=== PATIENT | female | born 1975 | race Caucasian/White ===

== ENCOUNTER 2016-06-19 16:18 | Outpatient (CLI) | payer OTHER ==
--- NOTE | 2016-06-19 17:20 | DIAGNOSTIC IMAGING REPORT ---
PROCEDURE: XR CHEST 2 VIEW INDICATION: COUGH/WHEEZING TECHNIQUE: PA and lateral view. COMPARISON: Chest x-ray 02/01/2015 FINDINGS: Lungs are clear. Cardiovascular structures are normal. Bony thorax is unremarkable. IMPRESSION: 1. Negative chest.
== END 2016-06-19 23:00 ==
LOC: XR SRH 16:18
DX: R06.2 Wheezing (principal); R05 Cough

== ENCOUNTER 2016-08-13 16:45 | Emergency (ER) | payer OTHER ==
--- NOTE | 2016-08-13 18:00 | DIAGNOSTIC IMAGING REPORT ---
PROCEDURE: XR CHEST 2 VIEW INDICATION: Chest pain. TECHNIQUE: PA and lateral views. COMPARISON: Compared to chest x-ray on 06/19/2016. FINDINGS: There is minimal thickening of the pulmonary fissures with findings suggesting mild interstitial changes (Eduardo B lines). Lungs are otherwise clear Heart and mediastinum are normal. Thorax is normal. IMPRESSION: 1. Minimal thickening of the pulmonary fissures with borderline interstitial changes. While heart is of normal size, consider acute/early pulmonary edema. 2. Findings discussed with Dr. Bruno Dial.
--- NOTE | 2016-08-13 20:33 | ED CLINICAL REPORT ---
Clinical Report - Physicians/Mid Levels [facility] [address] [place] [address] 08/13/2016 16:47 Patient: TWIN BLAKE Time Seen: 17:18. Arrived- By ambulance. Historian- patient and EMS personnel. CPT: ER phys charges level 4 plus (#[id number]). EKG interpretation (#[id number]). HISTORY OF PRESENT ILLNESS Chief Complaint: DYSPNEA. This started just prior to arrival Was in dental office getting teeth cleaned when she had the onset of dyspnea and claustraphobia; this had cough and intermittent dyspnea for 2 months and since she was diagnosed with bronchitis. She has used a albuterol inhaler since that time. She was at the dentist's office today when they were cleaning her teeth and she developed a sense of panic dyspnea and and claustrophobia. She was evaluated by the medics and brought in for dyspnea. Patient has no history of any similar kinds of events. She notes she does have a little left-sided chest pressure. and is still present. The dyspnea is described as moderate. The patient has had a cough, chest discomfort, dyspnea on exertion and anxiety. She has had moderate amounts of clear sputum (for 2 months). No fever, sweating episodes, chills, calf pain or foot swelling. Similar symptoms previously: Milder. Recent medical care: Not recently seen/assessed. REVIEW OF SYSTEMS The patient has not had weight loss. No sore throat, nasal discharge, sinus drainage, nausea or vomiting. No abdominal pain, diarrhea, black stools, bloody stools or fainting episodes. No difficulty with urination, excessive urination, skin rash, enlarged lymph nodes or joint pain. Chronic low back pain causing high blood pressure. All systems otherwise negative, except as recorded above. PAST HISTORY Hypertension. Chronic low back pain. . No history of asthma, pneumonia, congestive heart failure, emphysema or deep venous thrombosis. No history of pulmonary embolism. Medications: Albuterol Sulfate Inhalation. Albuterol. Allergies: No Known Drug Allergy. SOCIAL HISTORY Never smoker. No alcohol use or drug use. ADDITIONAL NOTES The nursing notes have been reviewed. PHYSICAL EXAM Vital Signs: 08/13/2016 17:03 BP: 152/138. HR: 118. RR: 22. O2 saturation: 91%. Temp: 38.6 F. Appearance: Alert. Anxious. Patient in moderate distress. Eyes: Eyes normal inspection. ENT: Pharynx normal. Uvula midline. Neck: Normal inspection. CVS: Normal heart rate and rhythm. Heart sounds normal. Pulses normal. Respiratory: Mild respiratory distress with anxiety and tachypnea. Mild rales present diffusely in both lungs. Abdomen: Soft and nontender. Back: Normal inspection. No CVA tenderness. Skin: Skin warm. Normal skin color. No rash. Extremities: Extremities exhibit normal ROM. No calf tenderness. No lower extremity edema. Neuro: Oriented X 3. No motor deficit. No sensory deficit. LABS, X-RAYS, AND EKG EKG: Normal sinus rhythm. Normal P waves. LBBB. Non-specific ST segment / T wave abnormalities. Prior EKG unavailable. The study has been interpreted contemporaneously. The study has been independently viewed by me. The EKG appears to be a good tracing. Chest X-ray: (possible early CHF by raissa B lines at the bases and fluid in the fissures.). Views: PA and lateral. Technique: good. The X-rays were independently viewed by me. Laboratory Tests: ESR: (SOCRATES: 08/13/2016 18:00) ( [facility] 08/13/2016 18:35) Final results Test Result Flag Units (Reference) SED RATE WESTERGREN 5 mm/hr (0-20) CBC w Diff: (SOCRATES: 08/13/2016 18:00) ( MsgRcvd 08/13/2016 18:15) Final results Test Result Flag Units (Reference) WHITE BLOOD COUNT 8.3 K/uL (4.5-11.5) RED BLOOD COUNT 5.12 M/uL (4.00-5.20) HEMOGLOBIN 14.0 gm/dL (12.0-16.0) HEMATOCRIT 41.7 % (36.0-46.0) MEAN CELL VOLUME 81 fL (80-100) MEAN CORPUSCULAR HGB 27 pg (26-34) MEAN CORPUSCULAR HGB CONC 34 g/dL (31-37) RED CELL DISTRIBUTION WIDTH 14.1 % (11.6-14.8) PLATELET COUNT 149 L K/uL (150-400) NEUTROPHIL % 75.3 H % (50-75) LYMPH % 19.3 L % (25-40) MONO % 4.0 % (3-14) EOSINOPHIL % 1.3 % (0-4) BASOPHIL % 0.1 % (0-2) [id number]: (SOCRATES: 08/13/2016 18:00) ( [facility] 08/13/2016 18:27) Final results Test Result Flag Units (Reference) D-DIMER QUANTITATIVE 0.42 ug/mLFEU (0.27-0.52) The primary value of this quantitative assay relates toits negative predictive value (i.e. exclusion) of pulmonaryembolism/deep vein thrombosis/DIC.Elevated levels of d-dimer may also occur with:, age, cancer, inflammation, liver disease,post-op, infection, hematoma, coronary disease, peripheralarteriopathy, bleeding disorders and thrombolytic treatment.Results should be correlated with other clinical andradiological data.Testing Methodology: Latex Immunoassay [id number]: (SOCRATES: 08/13/2016 18:00) ( [facility] 08/13/2016 18:34) Final results Test Result Flag Units (Reference) C-REACTIVE PROTEIN 0.2 mg/dL (0.0-0.9) BNP: (SOCRATES: 08/13/2016 18:00) ( [facility] 08/13/2016 18:35) Final results Test Result Flag Units (Reference) B-TYPE NATRIURETIC PEPTIDE 89.3 pg/ml (5-100) CHEM 13 PANEL: (SOCRATES: 08/13/2016 18:00) ( [facility] 08/13/2016 18:33) Final results Test Result Flag Units (Reference) GLUCOSE 131 H mg/dL (70-110) BUN 14 mg/dL (7-18) CREATININE 0.8 mg/dL (0.6-1.3) Estimated GFR >60 mL/min Estimated GFR- >60 mL/min Note: Persistent reduction over 3 months in eGFR<60 mL/min/1.73 m2 defines CKD. Patients with eGFR values>=60 mL/min/1.73 m2 may also have CKD if evidence ofpersistent proteinuria. Additional information may be foundat www.kidney.org. SODIUM 143 mmol/L (136-145) POTASSIUM 3.1 L mmol/L (3.5-5.1) CHLORIDE 106 mmol/L (98-107) CARBON DIOXIDE 26 mmol/L (21-32) CALCIUM 9.4 mg/dL (8.5-10.1) TOTAL PROTEIN 7.5 g/dL (6.4-8.2) ALBUMIN 4.0 g/dL (3.3-5.0) BILIRUBIN, TOTAL 0.4 mg/dL (0.0-1.0) ALKALINE PHOSPHATASE 67 U/L (46-116) AST (SGOT) 18 U/L (15-37) ALT (SGPT) 35 U/L (12-78) CPK 69 U/L (24-260) MAGNESIUM 2.0 mg/dL (1.8-2.4) TROPONIN I <0.05 ng/mL (0.00-1.5) TROPONIN REFERENCE RANGE:<0.1 NEGATIVE0.1-1.5 INDETERMINANT>1.5 POSITIVE . PROGRESS AND PROCEDURES Course of Care: Bishop LINDSEYN : Some better Hep lock Ativan 0.5 mg IV seemed to help a lot 20:24 08/13/16. Lungs much improved now. Ativan helped to resolve anxiety. Pt has had untreated HTN for 4 years that is due to chronic pain in the low back. Patient/family counseled. Disposition: Discharged. Condition: stable and improved. CLINICAL IMPRESSION Acute dyspnea Anxiety reaction with hyperventilation. Uncontrolled essential hypertension. New LBBB on EKG. Transient chest pain Chronic cough of unclear etiology. INSTRUCTIONS No strenuous activity. Avoid tobacco smoke. Warnings: Further evaluation is necessary. SEDATIVE MEDICATION: You were given sedative medication during your visit. Do not drive or operate dangerous machinery. GENERAL WARNINGS: Return or contact your physician immediately if your condition worsens or changes unexpectedly, if not improving as expected, or if other problems arise. Your Current Medications: CONTINUE TAKING THE FOLLOWING MEDICATIONS: Albuterol*. Albuterol Sulfate Inhalation. Prescription Medications: Alprazolam 0.5 mg: take 1 orally every 6 hours as needed for anxiety. Dispense ten (10). No refill. Pulmicort Flexhaler 180 mcg: inhale 2 puffs every 12 hours. Rinse mouth after inhalation. Dispense one (1) unit. No refills. Substitution is permissible. Follow-up: Follow up with your doctor. Call for the next available appointment. Follow up with a beta tester and epic anesthesia analyst- as recommended by your primary care physician. Call for the next available appointment. Understanding of the discharge instructions verbalized by patient. (Electronically signed by Bruno Dila MD 08/13/2016 22:03)
--- NOTE | 2016-08-13 20:33 | ED CLINICAL REPORT ---
Clinical Report - Physicians/Mid Levels [facility] [address] [place] [address] 08/13/2016 16:47 Patient: TWIN BLAKE Time Seen: 17:18. Arrived- By ambulance. Historian- patient and EMS personnel. CPT: ER phys charges level 4 plus (#[id number]). EKG interpretation (#[id number]). HISTORY OF PRESENT ILLNESS Chief Complaint: DYSPNEA. This started just prior to arrival Was in dental office getting teeth cleaned when she had the onset of dyspnea and claustraphobia; this had cough and intermittent dyspnea for 2 months and since she was diagnosed with bronchitis. She has used a albuterol inhaler since that time. She was at the dentist's office today when they were cleaning her teeth and she developed a sense of panic dyspnea and and claustrophobia. She was evaluated by the medics and brought in for dyspnea. Patient has no history of any similar kinds of events. She notes she does have a little left-sided chest pressure. and is still present. The dyspnea is described as moderate. The patient has had a cough, chest discomfort, dyspnea on exertion and anxiety. She has had moderate amounts of clear sputum (for 2 months). No fever, sweating episodes, chills, calf pain or foot swelling. Similar symptoms previously: Milder. Recent medical care: Not recently seen/assessed. REVIEW OF SYSTEMS The patient has not had weight loss. No sore throat, nasal discharge, sinus drainage, nausea or vomiting. No abdominal pain, diarrhea, black stools, bloody stools or fainting episodes. No difficulty with urination, excessive urination, skin rash, enlarged lymph nodes or joint pain. Chronic low back pain causing high blood pressure. All systems otherwise negative, except as recorded above. PAST HISTORY Hypertension. Chronic low back pain. . No history of asthma, pneumonia, congestive heart failure, emphysema or deep venous thrombosis. No history of pulmonary embolism. Medications: Albuterol Sulfate Inhalation. Albuterol. Allergies: No Known Drug Allergy. SOCIAL HISTORY Never smoker. No alcohol use or drug use. ADDITIONAL NOTES The nursing notes have been reviewed. PHYSICAL EXAM Vital Signs: 08/13/2016 17:03 BP: 152/138. HR: 118. RR: 22. O2 saturation: 91%. Temp: 38.6 F. Appearance: Alert. Anxious. Patient in moderate distress. Eyes: Eyes normal inspection. ENT: Pharynx normal. Uvula midline. Neck: Normal inspection. CVS: Normal heart rate and rhythm. Heart sounds normal. Pulses normal. Respiratory: Mild respiratory distress with anxiety and tachypnea. Mild rales present diffusely in both lungs. Abdomen: Soft and nontender. Back: Normal inspection. No CVA tenderness. Skin: Skin warm. Normal skin color. No rash. Extremities: Extremities exhibit normal ROM. No calf tenderness. No lower extremity edema. Neuro: Oriented X 3. No motor deficit. No sensory deficit. LABS, X-RAYS, AND EKG EKG: Normal sinus rhythm. Normal P waves. LBBB. Non-specific ST segment / T wave abnormalities. Prior EKG unavailable. The study has been interpreted contemporaneously. The study has been independently viewed by me. The EKG appears to be a good tracing. Chest X-ray: (possible early CHF by raissa B lines at the bases and fluid in the fissures.). Views: PA and lateral. Technique: good. The X-rays were independently viewed by me. Laboratory Tests: ESR: (SOCRATES: 08/13/2016 18:00) ( [facility] 08/13/2016 18:35) Final results Test Result Flag Units (Reference) SED RATE WESTERGREN 5 mm/hr (0-20) CBC w Diff: (SOCRATES: 08/13/2016 18:00) ( MsgRcvd 08/13/2016 18:15) Final results Test Result Flag Units (Reference) WHITE BLOOD COUNT 8.3 K/uL (4.5-11.5) RED BLOOD COUNT 5.12 M/uL (4.00-5.20) HEMOGLOBIN 14.0 gm/dL (12.0-16.0) HEMATOCRIT 41.7 % (36.0-46.0) MEAN CELL VOLUME 81 fL (80-100) MEAN CORPUSCULAR HGB 27 pg (26-34) MEAN CORPUSCULAR HGB CONC 34 g/dL (31-37) RED CELL DISTRIBUTION WIDTH 14.1 % (11.6-14.8) PLATELET COUNT 149 L K/uL (150-400) NEUTROPHIL % 75.3 H % (50-75) LYMPH % 19.3 L % (25-40) MONO % 4.0 % (3-14) EOSINOPHIL % 1.3 % (0-4) BASOPHIL % 0.1 % (0-2) [id number]: (SOCRATES: 08/13/2016 18:00) ( [facility] 08/13/2016 18:27) Final results Test Result Flag Units (Reference) D-DIMER QUANTITATIVE 0.42 ug/mLFEU (0.27-0.52) The primary value of this quantitative assay relates toits negative predictive value (i.e. exclusion) of pulmonaryembolism/deep vein thrombosis/DIC.Elevated levels of d-dimer may also occur with:, age, cancer, inflammation, liver disease,post-op, infection, hematoma, coronary disease, peripheralarteriopathy, bleeding disorders and thrombolytic treatment.Results should be correlated with other clinical andradiological data.Testing Methodology: Latex Immunoassay [id number]: (SOCRATES: 08/13/2016 18:00) ( [facility] 08/13/2016 18:34) Final results Test Result Flag Units (Reference) C-REACTIVE PROTEIN 0.2 mg/dL (0.0-0.9) BNP: (SOCRATES: 08/13/2016 18:00) ( [facility] 08/13/2016 18:35) Final results Test Result Flag Units (Reference) B-TYPE NATRIURETIC PEPTIDE 89.3 pg/ml (5-100) CHEM 13 PANEL: (SOCRATES: 08/13/2016 18:00) ( [facility] 08/13/2016 18:33) Final results Test Result Flag Units (Reference) GLUCOSE 131 H mg/dL (70-110) BUN 14 mg/dL (7-18) CREATININE 0.8 mg/dL (0.6-1.3) Estimated GFR >60 mL/min Estimated GFR- >60 mL/min Note: Persistent reduction over 3 months in eGFR<60 mL/min/1.73 m2 defines CKD. Patients with eGFR values>=60 mL/min/1.73 m2 may also have CKD if evidence ofpersistent proteinuria. Additional information may be foundat www.kidney.org. SODIUM 143 mmol/L (136-145) POTASSIUM 3.1 L mmol/L (3.5-5.1) CHLORIDE 106 mmol/L (98-107) CARBON DIOXIDE 26 mmol/L (21-32) CALCIUM 9.4 mg/dL (8.5-10.1) TOTAL PROTEIN 7.5 g/dL (6.4-8.2) ALBUMIN 4.0 g/dL (3.3-5.0) BILIRUBIN, TOTAL 0.4 mg/dL (0.0-1.0) ALKALINE PHOSPHATASE 67 U/L (46-116) AST (SGOT) 18 U/L (15-37) ALT (SGPT) 35 U/L (12-78) CPK 69 U/L (24-260) MAGNESIUM 2.0 mg/dL (1.8-2.4) TROPONIN I <0.05 ng/mL (0.00-1.5) TROPONIN REFERENCE RANGE:<0.1 NEGATIVE0.1-1.5 INDETERMINANT>1.5 POSITIVE . PROGRESS AND PROCEDURES Course of Care: Bishop LINDSEYN : Some better Hep lock Ativan 0.5 mg IV seemed to help a lot 20:24 08/13/16. Lungs much improved now. Ativan helped to resolve anxiety. Pt has had untreated HTN for 4 years that is due to chronic pain in the low back. Patient/family counseled. Disposition: Discharged. Condition: stable and improved. CLINICAL IMPRESSION Acute dyspnea Anxiety reaction with hyperventilation. Uncontrolled essential hypertension. New LBBB on EKG. Transient chest pain Chronic cough of unclear etiology. INSTRUCTIONS No strenuous activity. Avoid tobacco smoke. Warnings: Further evaluation is necessary. SEDATIVE MEDICATION: You were given sedative medication during your visit. Do not drive or operate dangerous machinery. GENERAL WARNINGS: Return or contact your physician immediately if your condition worsens or changes unexpectedly, if not improving as expected, or if other problems arise. Your Current Medications: CONTINUE TAKING THE FOLLOWING MEDICATIONS: Albuterol*. Albuterol Sulfate Inhalation. Prescription Medications: Alprazolam 0.5 mg: take 1 orally every 6 hours as needed for anxiety. Dispense ten (10). No refill. Pulmicort Flexhaler 180 mcg: inhale 2 puffs every 12 hours. Rinse mouth after inhalation. Dispense one (1) unit. No refills. Substitution is permissible. Follow-up: Follow up with your doctor. Call for the next available appointment. Follow up with a neon glass blower and hemmer chainstitch- as recommended by your primary care physician. Call for the next available appointment. Understanding of the discharge instructions verbalized by patient. (Electronically signed by Bruno Dial MD 08/13/2016 22:03)
--- NOTE | 2016-08-13 20:34 | ED ORDER SUMMARY ---
..... Patient: TWIN BLAKE OrderSheet [facility] VisitID: [id number] [place] [address] 41y, F Registration Date/Time: 08/13/2016 ORDER SHEET Weight: 136.0 kg (stated) Allergies: No Known Drug Allergy GENERAL ORDERS: Chest 2V Urgent (17:08/13/2016 Colleen HAZEL) (Ack 17:31 Eric ER Tech1) (18:10 LAbe R.N.) Infection Prevention Coordinator (Continuous) (17:08/13/2016 Colleen HAZEL) (17:32 LAbe R.N.) Cardiac Panel Stat (:08/13/2016 Colleen HAZEL) (Ack 17:31 Eric Valverde1) (18:10 LAbe R.N.) BNP Urgent (17:08/13/2016 Colleen HAZEL) (Ack 17:31 Eric Valverde1) (18:10 LAbe R.N.) D-Dimer Urgent (17:08/13/2016 Colleen HAZEL) (Ack 17:31 Eric Valverde1) (18:10 LAbe R.N.) Oxygen (2 L/min) (NC) (17:08/13/2016 Colleen HAZEL) (17:32 LAbe R.N.) Pulse oximeter (17:08/13/2016 Colleen HAZEL) (17:32 LAbe R.N.) EKG - ER Stat (17:08/13/2016 Colleen HAZEL) (Ack 17:31 Eric Goff) (17:49 PWeiroseanne ER Tech1) CRP Urgent (17:08/13/2016 Colleen HAZEL) (Ack 17:31 Eric Goff) (18:10 LAbe R.N.) ESR Urgent (:08/13/2016 Colleen HAZEL) (Ack 17:31 Eric Valverde1) (18:10 LAbe R.N.) MEDICATION ORDERS: DuoNeb Neb Tx 1 unit dose (NOW) (17:08/13/2016 Colleen HAZEL) (Ack 17:32 Veda R.N.) (17:38 KEpting) IV FLUIDS: IV Saline Lock (17:30 08/13/2016 Colleen HAZEL) (Ack 17:32 LAbe R.N.) (18:11 LAbe R.N.) Ativan IV 0.5 mg (NOW) (18:22 08/13/2016 Colleen HAZEL) (18:53 LWannie R.N.) ORDER SHEET NOTES: [Electronically signed by Jazzy Bloom R.N. (20:59 08/13/2016)] [Electronically signed by Bruno Dial MD (22:03 08/13/2016)] [Electronically locked/signed by Jazzy Bloom R.N. (20:59 08/13/2016)]
--- NOTE | 2016-08-13 20:34 | ED ORDER SUMMARY ---
..... Patient: TWIN BLAKE OrderSheet [facility] VisitID: [id number] [place] [address] 41y, F Registration Date/Time: 08/13/2016 ORDER SHEET Weight: 136.0 kg (stated) Allergies: No Known Drug Allergy GENERAL ORDERS: Chest 2V Urgent (17:08/13/2016 Colleen HAZEL) (Ack 17:31 Eric ER Tech1) (18:10 LAbe R.N.) Community Pharmacist (Continuous) (17:08/13/2016 Colleen HAZEL) (17:32 LAbe R.N.) Cardiac Panel Stat (:08/13/2016 Colleen HAZEL) (Ack 17:31 Eric Valverde1) (18:10 LAbe R.N.) BNP Urgent (17:08/13/2016 Colleen HAZEL) (Ack 17:31 Eric Valverde1) (18:10 LAbe R.N.) D-Dimer Urgent (17:08/13/2016 Colleen HAZEL) (Ack 17:31 Eric Valverde1) (18:10 LAbe R.N.) Oxygen (2 L/min) (NC) (17:08/13/2016 Colleen HAZEL) (17:32 LAbe R.N.) Pulse oximeter (17:08/13/2016 Colleen HAZEL) (17:32 LAbe R.N.) EKG - ER Stat (17:08/13/2016 Colleen HAZEL) (Ack 17:31 Eric Goff) (17:49 PWeiroseanne ER Tech1) CRP Urgent (17:08/13/2016 Colleen HAZEL) (Ack 17:31 Eric Goff) (18:10 LAbe R.N.) ESR Urgent (:08/13/2016 Colleen HAZEL) (Ack 17:31 Eric Valverde1) (18:10 LAbe R.N.) MEDICATION ORDERS: DuoNeb Neb Tx 1 unit dose (NOW) (17:08/13/2016 Colleen HAZEL) (Ack 17:32 Veda R.N.) (17:38 KEpting) IV FLUIDS: IV Saline Lock (17:30 08/13/2016 Colleen HAZEL) (Ack 17:32 LAbe R.N.) (18:11 LAbe R.N.) Ativan IV 0.5 mg (NOW) (18:22 08/13/2016 Colleen HAZEL) (18:53 LWannie R.N.) ORDER SHEET NOTES: [Electronically signed by Jazzy Bloom R.N. (20:59 08/13/2016)] [Electronically signed by Bruno Dial MD (22:03 08/13/2016)] [Electronically locked/signed by Jazzy Bloom R.N. (20:59 08/13/2016)]
--- NOTE | 2016-08-13 20:34 | ED NURSING NOTES ---
Clinical Report - Nurses [facility] [address] [place] [address] 08/13/2016 16:47 Patient: TWIN BLAKE TRIAGE Triage time 1655. Acuity: LEVEL 2. Chief Complaint: SHORTNESS OF BREATH, DIFFICULTY BREATHING, "ASTHMA ATTACK" and WHEEZING. Alert. No acute distress. --17:13 Trini Rankin R.N. 17:03 08/13/16. BP: 152/138. HR: 118. RR: 22. O2 saturation: 91%. Temp: 38.6 F. Pain level now 0/10. --17:13 Trini Rankin R.N. Weight: 136 kg stated. Height/Length: 70 inches Per Patient. BMI: 43. --17:12 Trini Rankin R.N. Medications Albuterol. --17:07 Trini Rankin R.N. Albuterol Sulfate Inhalation. --17:07 Trini Rankin R.N. Allergies No Known Drug Allergy. --17:07 Trini Rankin R.N. History Arrived by private vehicle. Historian: patient. Accompanied by family and daughter and son. Primary physician (cinthia). This started just prior to arrival. ( patient at dentist having teeth cleaned, got very nervous, became SOB, no meds given or numbing agents used, patient left to come to ED). She has had a cough and wheezing. No chest pain. 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 PAST MEDICAL HX: Immunizations: up-to-date. Last normal menstrual period was 3 weeks ago. ( patient states she has not been diagnosed with ashtma). SURGERY HX: . SOCIAL HX: Never smoker. No alcohol use or drug use. No infectious disease exposure. ABUSE ASSESSMENT: No report of abuse. SELF HARM ASSESSMENT: A self harm assessment was performed. The patient answered "no" to the question "Do you have thoughts of harming or killing yourself?" and "Are you here because you tried to hurt yourself?". FALL RISK ASSESSMENT: Fall risk assessment completed. No fall risk identified. NUTRITIONAL RISK ASSESSMENT: The nutritional risk assessment revealed no deficiencies. FUNCTIONAL ASSESSMENT: Functional assessment: no impairments noted. LEARNING NEEDS ASSESSMENT: The learning needs assessment revealed no barriers. --17:13 Triin Rankin R.N. Interventions ID and allergy band on patient. To treatment room. --17:13 Trini Rankin R.N. PHYSICAL ASSESSMENT To room via wheelchair. GENERAL / NEURO / PSYCH: Alert. Oriented X 4. Appears in distress. RESPIRATORY: Moderate respiratory distress. The patient can speak a few words at a time. Decreased breath sounds. Wheezing present. Rhonchi present. SKIN: Skin is warm and dry. --17:14 Trini Rankin R.N. NURSING PROGRESS NOTES Oxygen administered at 2 liters. Monitoring of patient in place. Patient gowned. Head of bed elevated. Two patient identifiers checked. Call light placed in reach. Bed placed in lowest position. Brakes of bed on. Patient ready for evaluation- chart flagged and ED physician notified. --17:15 Trini Rankin R.N. Reassessment after procedure, intervention and medication administered (duoneb). RESPIRATORY: Mild respiratory distress. The patient can speak in full sentences. Crackles present. --17:24 Trini Rankin R.N. 17:13 08/13/2016 Duoneb (Ipratropium-Albuterol) Neb [place] 1 unit dose given. --17:38 Elizabeth Wagner EKG time: (209). EKG was ordered, performed by a miryam and shown to the ED physician. --18:04 Ramón Melendez ER Tech1 18:11 08/13/2016 Site #1 started via IV in the right forearm with an 22g angiocath, with aseptic technique and good blood return; one attempt. Blood drawn: rainbow set. Saline lock flushed with 5 mL saline. --18:11 Trini Rankin R.N. 18:52 08/13/2016 Ativan (LORazepam) IVP 0.5 mg given over 2 minute(s) via site #1. Allergies verified, confirmed 5 rights and sedative warning given to the patient. IV patency established. IV site checked: no pain, redness, or swelling. IV flushed thoroughly pre- and post-medication administration. --18:53 Leonardo Molina R.N. Care transferred and report received. --19:22 Griselda Valle R.N. The patient reports no complaints and she is calm. RESPIRATORY: No respiratory distress. ( pt states she is comfortable and would like to go home.). --19:26 Griselda Valle R.N. DISPOSITION / DISCHARGE 20:51 08/13/2016 Site #1 removed upon discharge. Catheter intact. Manual pressure and bandage applied. --20:55 Jazzy Bloom R.N. Departure time: 2050. Condition at departure: improved and stable. ( Pt states BP is always elevated, BP is down from admission and pt is asymptomatic). No learning barriers present. Discharge instructions provided and reviewed with the patient. Reviewed medication(s) side effects, precautions, dosing and course information. Prescription(s) given to the patient. Activity restrictions reviewed (no strenuous). Patient verbalized understanding. Written instructions provided in [place]. ( pt going to followup with PCP). The patient was discharged home and accompanied by spouse. She left the Emergency Department ambulatory and via private vehicle. Spouse driving. --20:59 Jazzy Bloom R.N. 20:54 08/13/16. BP: 179/107 taken on the left arm, while lying. HR: 95 (regular and normal rate). RR: 18. O2 saturation: 95%. Temp: deferred. Pain level now: 0/10. --20:59 Jazzy Bloom R.N. Locked/Released at 08/13/2016 20:59 by Jazzy Bloom R.N.
--- NOTE | 2016-08-13 20:34 | ED NURSING NOTES ---
Clinical Report - Nurses [facility] [address] [place] [address] 08/13/2016 16:47 Patient: TWIN BLAKE TRIAGE Triage time 1655. Acuity: LEVEL 2. Chief Complaint: SHORTNESS OF BREATH, DIFFICULTY BREATHING, "ASTHMA ATTACK" and WHEEZING. Alert. No acute distress. --17:13 Trini Rankin R.N. 17:03 08/13/16. BP: 152/138. HR: 118. RR: 22. O2 saturation: 91%. Temp: 38.6 F. Pain level now 0/10. --17:13 Trini Rankin R.N. Weight: 136 kg stated. Height/Length: 70 inches Per Patient. BMI: 43. --17:12 Trini Rankin R.N. Medications Albuterol. --17:07 Trini Rankin R.N. Albuterol Sulfate Inhalation. --17:07 Trini Rankin R.N. Allergies No Known Drug Allergy. --17:07 Trini Rankin R.N. History Arrived by private vehicle. Historian: patient. Accompanied by family and daughter and son. Primary physician (cinthia). This started just prior to arrival. ( patient at dentist having teeth cleaned, got very nervous, became SOB, no meds given or numbing agents used, patient left to come to ED). She has had a cough and wheezing. No chest pain. 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 PAST MEDICAL HX: Immunizations: up-to-date. Last normal menstrual period was 3 weeks ago. ( patient states she has not been diagnosed with ashtma). SURGERY HX: . SOCIAL HX: Never smoker. No alcohol use or drug use. No infectious disease exposure. ABUSE ASSESSMENT: No report of abuse. SELF HARM ASSESSMENT: A self harm assessment was performed. The patient answered "no" to the question "Do you have thoughts of harming or killing yourself?" and "Are you here because you tried to hurt yourself?". FALL RISK ASSESSMENT: Fall risk assessment completed. No fall risk identified. NUTRITIONAL RISK ASSESSMENT: The nutritional risk assessment revealed no deficiencies. FUNCTIONAL ASSESSMENT: Functional assessment: no impairments noted. LEARNING NEEDS ASSESSMENT: The learning needs assessment revealed no barriers. --17:13 Trini Rankin R.N. Interventions ID and allergy band on patient. To treatment room. --17:13 Trini Rankin R.N. PHYSICAL ASSESSMENT To room via wheelchair. GENERAL / NEURO / PSYCH: Alert. Oriented X 4. Appears in distress. RESPIRATORY: Moderate respiratory distress. The patient can speak a few words at a time. Decreased breath sounds. Wheezing present. Rhonchi present. SKIN: Skin is warm and dry. --17:14 Trini Rankin R.N. NURSING PROGRESS NOTES Oxygen administered at 2 liters. Monitoring of patient in place. Patient gowned. Head of bed elevated. Two patient identifiers checked. Call light placed in reach. Bed placed in lowest position. Brakes of bed on. Patient ready for evaluation- chart flagged and ED physician notified. --17:15 Trini Rankin R.N. Reassessment after procedure, intervention and medication administered (duoneb). RESPIRATORY: Mild respiratory distress. The patient can speak in full sentences. Crackles present. --17:24 Trini Rankin R.N. 17:13 08/13/2016 Duoneb (Ipratropium-Albuterol) Neb [place] 1 unit dose given. --17:38 Elizabeth Wagner EKG time: (635). EKG was ordered, performed by a miryam and shown to the ED physician. --18:04 Ramón Melendez ER Tech1 18:11 08/13/2016 Site #1 started via IV in the right forearm with an 22g angiocath, with aseptic technique and good blood return; one attempt. Blood drawn: rainbow set. Saline lock flushed with 5 mL saline. --18:11 Trini Rankin R.N. 18:52 08/13/2016 Ativan (LORazepam) IVP 0.5 mg given over 2 minute(s) via site #1. Allergies verified, confirmed 5 rights and sedative warning given to the patient. IV patency established. IV site checked: no pain, redness, or swelling. IV flushed thoroughly pre- and post-medication administration. --18:53 Lenoardo Molina R.N. Care transferred and report received. --19:22 Griselda Valle R.N. The patient reports no complaints and she is calm. RESPIRATORY: No respiratory distress. ( pt states she is comfortable and would like to go home.). --19:26 Griselda Valle R.N. DISPOSITION / DISCHARGE 20:51 08/13/2016 Site #1 removed upon discharge. Catheter intact. Manual pressure and bandage applied. --20:55 Jazzy Bloom R.N. Departure time: 2050. Condition at departure: improved and stable. ( Pt states BP is always elevated, BP is down from admission and pt is asymptomatic). No learning barriers present. Discharge instructions provided and reviewed with the patient. Reviewed medication(s) side effects, precautions, dosing and course information. Prescription(s) given to the patient. Activity restrictions reviewed (no strenuous). Patient verbalized understanding. Written instructions provided in [place]. ( pt going to followup with PCP). The patient was discharged home and accompanied by spouse. She left the Emergency Department ambulatory and via private vehicle. Spouse driving. --20:59 Jazzy Bloom R.N. 20:54 08/13/16. BP: 179/107 taken on the left arm, while lying. HR: 95 (regular and normal rate). RR: 18. O2 saturation: 95%. Temp: deferred. Pain level now: 0/10. --20:59 Jazzy Bloom R.N. Locked/Released at 08/13/2016 20:59 by Jazzy Bloom R.N.
--- NOTE | 2016-08-13 22:04 | ED MAR SUMMARY ---
..... Medication Administration Record [facility] [address] [place] [address] Patient: TWIN BLAKE Visit ID: [id number] 41y, F Weight: 136.0 kg Height/Length: 70 in BMI: 43 ALLERGIES: No Known Drug Allergy Given 17:13 08/13/2016 Elizabeth Wagner, Medication Administered: DUONEB [NEB TX] (IPRATROPIUM-ALBUTEROL), Dose: 1 unit dose Neb TX. Medication Ordered: DuoNeb Neb Tx 1 unit dose (NOW). Given 18:52 08/13/2016 Leonardo Molina R.N. Medication Administered: ATIVAN [IVP] (LORAZEPAM), Dose: 0.5 mg IVP over 2 minute(s), Site: #1 right forearm. Medication Ordered: Ativan IV 0.5 mg (NOW).
--- NOTE | 2016-08-13 22:04 | ED DISCHARGE INSTRUCTIONS ---
Patient: TWIN BLAKE General Instructions [facility] VisitID: [id number] [place] [address] 41y, F Registration Date/Time: 08/13/2016 Acute dyspnea Anxiety reaction with hyperventilation. Uncontrolled essential hypertension. New LBBB on EKG. Transient chest pain Chronic cough of unclear etiology. INSTRUCTIONS No strenuous activity. Avoid tobacco smoke. Warnings: Further evaluation is necessary. SEDATIVE MEDICATION: You were given sedative medication during your visit. Do not drive or operate dangerous machinery. GENERAL WARNINGS: Return or contact your physician immediately if your condition worsens or changes unexpectedly, if not improving as expected, or if other problems arise. Your Current Medications: CONTINUE TAKING THE FOLLOWING MEDICATIONS: Albuterol*. Albuterol Sulfate Inhalation. Prescription Medications: Alprazolam 0.5 mg: take 1 orally every 6 hours as needed for anxiety. Dispense ten (10). No refill. Pulmicort Flexhaler 180 mcg: inhale 2 puffs every 12 hours. Rinse mouth after inhalation. Dispense one (1) unit. No refills. Substitution is permissible. Follow-up: Follow up with your doctor. Call for the next available appointment. 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 Call for the next available appointment. Understanding of the discharge instructions verbalized by patient. ADDITIONAL INFORMATION Dyspnea (Shortness Of Breath) Shortness of Breath (also known as "Dyspnea") is the sense that you can't catch your breath or can't get enough air. Dyspnea can be caused by many different conditions such as: Acute asthma attack Worsening of emphysema (also called "COPD") -- a lung diseasethat is caused by smoking A mucus plug blocks a large air passage in the lung -- this can occur with emphysema or chronic bronchitis Congestive Heart Failure ("CHF") -- when a weak heart muscle allows excess fluid to collect inthe lungs Panic attacks, anxiety -- fear can cause rapid breathing ("hyperventilation") Pneumonia -- infection in the lung tissue Exposure to toxic fumes or smoke Pulmonary embolus (blood clot to the lung) Based on your visit today, the exact cause of your shortness of breath is not certain. Your tests do not show any of the serious causes of dyspnea. Sometimes, further testing is needed to find out if a serious problem exists. Therefore, it is important for you to watch for any new symptoms or worsening of your condition and follow up with your doctor as directed. Home Care: When your symptoms are better, resume your usual activities. If you smoke, you need to stop. Join a stop-smoking program or ask your doctor for help. Follow Up with your doctor or as advised by our staff. Get Prompt Medical Attention if any of the following occur: Increasing shortness of breath or wheezing Redness, pain or swelling in one leg Swelling in both legs or ankles Unexpected weight gain Chest, arm, shoulder, neck or upper back pain Dizziness, weakness or fainting Palpitations (the sense that your heart is fluttering, beating fast or hard) Fever of 100.4F (38C) or higher, or as directed by your healthcare provider Cough with dark colored or bloody sputum (mucus) Stress Reaction Anxiety is the feeling we all get when we think something bad might happen. It is a normal response to stress and usually causes only a mild reaction. When anxiety becomes more severe, emotions may interfere with daily life. In some cases, you may not even be aware of what it is youre anxious about! During an anxiety reaction, you may feel like you are helpless, nervous, depressed or irritable. Your body may show signs of anxiety in many ways. You may experience dry mouth, shakiness, dizziness, weakness, trouble breathing, chest pressure, headache, nausea, diarrhea, tiredness, inability to sleep or sexual problems. Home Care: 1) Try to locate the sources of stress in your life. They may not be obvious! These may include: -- Daily hassles of life which pile up (traffic jams, missed appointments, car troubles, etc.) -- Major life changes, both good (new baby, job promotion) and bad (loss of job, loss of loved one) -- Overload: feeling that you have too many responsibilities and can't take care of all of them at once -- Feeling helpless, feeling that your problems are beyond what youre able to solve 2) Notice how your body reacts to stress. Learn to listen to your body signals. This will help you take action before the stress becomes severe. 3) When you can, do something about the source of your stress. (Avoid hassles, limit the amount of change that happens in your life at one time and take a break when you feel overloaded). 4) Unfortunately, many stressful situations cannot be avoided. It is necessary to learn HOW TO MANAGE STRESS better. There are many proven methods that will reduce your anxiety. These include simple things like exercise, good nutrition and adequate rest. Also, there are certain techniques that are helpful: relaxation and breathing exercises, visualization, biofeedback and meditation. For more information about this, consult your doctor or go to a local bookstore and review the many books and tapes available on this subject. Follow Up If you feel that your anxiety is not responding to self-help measures, contact your doctor or make an appointment with a counselor. Get Prompt Medical Attention if any of the following occur: -- Your symptoms get worse -- Chest pain or trouble breathing -- Severe headache not relieved by rest and mild pain reliever -- Rapid or irregular heartbeat, fainting Alprazolam Oral tablet What is this medicine? ALPRAZOLAM (al PRAEd husain ochoa) is a benzodiazepine. It is used to treat anxiety and panic attacks. How should I use this medicine? Take this medicine by mouth with a glass of water. Follow the directions on the prescription label. Take your medicine at regular intervals. Do not take it more often than directed. If you have been taking this medicine regularly for some time, do not suddenly stop taking it. You must gradually reduce the dose or you may get severe side effects. Ask your doctor or health progressive care nurse for advice. Even after you stop taking this medicine it can still affect your body for several days. Talk to your podiatric medicine professor regarding the use of this medicine in children. Special care may be needed. What side effects may I notice from receiving this medicine? Side effects that you should report to your doctor or health progressive care nurse as soon as possible: allergic reactions like skin rash, itching or hives, swelling of the face, lips, or tongue confusion, forgetfulness depression difficulty sleeping difficulty speaking feeling faint or lightheaded, falls mood changes, excitability or aggressive behavior muscle cramps trouble passing urine or change in the amount of urine unusually weak or tired Side effects that usually do not require medical attention (report to your doctor or health progressive care nurse if they continue or are bothersome): change in sex drive or performance changes in appetite What may interact with this medicine? Do not take this medicine with any of the following medications: certain medicines for HIV infection or AIDS ketoconazole itraconazole This medicine may also interact with the following medications: control pills certain macrolide antibiotics like clarithromycin, erythromycin, troleandomycin cimetidine cyclosporine ergotamine grapefruit juice herbal or dietary supplements like kava kava, melatonin, dehydroepiandrosterone, DHEA, Flower's Wort or valerian imatinib, STI-[id number] isoniazid levodopa medicines for depression, anxiety, or psychotic disturbances prescription pain medicines rifampin, rifapentine, or rifabutin some medicines for blood pressure or heart problems some medicines for seizures like carbamazepine, oxcarbazepine, phenobarbital, phenytoin, primidone What if I miss a dose? If you miss a dose, take it as soon as you can. If it is almost time for your next dose, take only that dose. Do not take double or extra doses. Where should I keep my medicine? Keep out of the reach of children. This medicine can be abused. Keep your medicine in a safe place to protect it from theft. Do not share this medicine with anyone. Selling or giving away this medicine is dangerous and against the law. Store at room temperature between 20 and 25 degrees C (68 and 77 degrees F). Throw away any unused medicine after the expiration date. What should I tell my health care provider before I take this medicine? They need to know if you have any of these conditions: an alcohol or drug abuse problem bipolar disorder, depression, psychosis or other mental health conditions glaucoma kidney or liver disease lung or breathing disease myasthenia gravis Parkinson's disease porphyria seizures or a history of seizures suicidal thoughts an unusual or allergic reaction to alprazolam, other benzodiazepines, foods, dyes, or preservatives or trying to get breast-feeding What should I watch for while using this medicine? Visit your doctor or health progressive care nurse for regular checks on your progress. Your body can become dependent on this medicine. Ask your doctor or health progressive care nurse if you still need to take it. You may get drowsy or dizzy. Do not drive, use machinery, or do anything that needs mental alertness until you know how this medicine affects you. To reduce the risk of dizzy and fainting spells, do not stand or sit up quickly, especially if you are an older patient. Alcohol may increase dizziness and drowsiness. Avoid alcoholic drinks. Do not treat yourself for coughs, colds or allergies without asking your doctor or health progressive care nurse for advice. Some ingredients can increase possible side effects. You have been given the following additional information: Dyspnea Anxiety Reaction Alprazolam Oral tablet No strenuous activity. (Electronically signed by Bruno Dial MD 08/13/2016 22:03)
--- NOTE | 2016-08-13 22:04 | ED MAR SUMMARY ---
..... Medication Administration Record [facility] [address] [place] [address] Patient: TWIN BLAKE Visit ID: [id number] 41y, F Weight: 136.0 kg Height/Length: 70 in BMI: 43 ALLERGIES: No Known Drug Allergy Given 17:13 08/13/2016 Elizabeth Wagner, Medication Administered: DUONEB [NEB TX] (IPRATROPIUM-ALBUTEROL), Dose: 1 unit dose Neb TX. Medication Ordered: DuoNeb Neb Tx 1 unit dose (NOW). Given 18:52 08/13/2016 Leonardo Molina R.N. Medication Administered: ATIVAN [IVP] (LORAZEPAM), Dose: 0.5 mg IVP over 2 minute(s), Site: #1 right forearm. Medication Ordered: Ativan IV 0.5 mg (NOW).
--- NOTE | 2016-08-13 22:04 | ED MED RECONCILIATION SUMMARY ---
Patient: TWIN BLAKE Medication Reconciliation Report [facility] VisitID: [id number] [place] [address] 41y, F Registration Date/Time: 08/13/2016 Weight: 136.0 kg Height/Length: 70 in. BMI: 43.0 ALLERGIES: No Known Drug Allergy The patient's Home Medications are listed below: CONTINUE TAKING THE FOLLOWING MEDICATIONS: Albuterol Albuterol Sulfate Inhalation The source(s) of the original Home Medication information: Not obtained. The following Medications were given to the patient in the Emergency Department: Duoneb [Neb Tx] Neb TX 1 unit dose, administered: 08/13/2016 5:13:00 PM Ativan [IVP] IVP 0.5 mg, administered: 08/13/2016 6:52:00 PM The following Medications were prescribed to the patient: Alprazolam 0.5 mg: take 1 orally every 6 hours as needed for anxiety. Dispense ten (10). No refill. -- Bruno Dial MD Pulmicort Flexhaler 180 mcg: inhale 2 puffs every 12 hours. Rinse mouth after inhalation. Dispense one (1) unit. No refills. Substitution is permissible. -- Bruno Dial MD
--- NOTE | 2016-08-13 22:04 | ED DISCHARGE INSTRUCTIONS ---
Patient: TWIN BLAKE General Instructions [facility] VisitID: [id number] [place] [address] 41y, F Registration Date/Time: 08/13/2016 Acute dyspnea Anxiety reaction with hyperventilation. Uncontrolled essential hypertension. New LBBB on EKG. Transient chest pain Chronic cough of unclear etiology. INSTRUCTIONS No strenuous activity. Avoid tobacco smoke. Warnings: Further evaluation is necessary. SEDATIVE MEDICATION: You were given sedative medication during your visit. Do not drive or operate dangerous machinery. GENERAL WARNINGS: Return or contact your physician immediately if your condition worsens or changes unexpectedly, if not improving as expected, or if other problems arise. Your Current Medications: CONTINUE TAKING THE FOLLOWING MEDICATIONS: Albuterol*. Albuterol Sulfate Inhalation. Prescription Medications: Alprazolam 0.5 mg: take 1 orally every 6 hours as needed for anxiety. Dispense ten (10). No refill. Pulmicort Flexhaler 180 mcg: inhale 2 puffs every 12 hours. Rinse mouth after inhalation. Dispense one (1) unit. No refills. Substitution is permissible. Follow-up: Follow up with your doctor. Call for the next available appointment. Follow up with a timber hewer and specialty molder- as recommended by your primary care physician. Call for the next available appointment. Understanding of the discharge instructions verbalized by patient. ADDITIONAL INFORMATION Dyspnea (Shortness Of Breath) Shortness of Breath (also known as "Dyspnea") is the sense that you can't catch your breath or can't get enough air. Dyspnea can be caused by many different conditions such as: Acute asthma attack Worsening of emphysema (also called "COPD") -- a lung diseasethat is caused by smoking A mucus plug blocks a large air passage in the lung -- this can occur with emphysema or chronic bronchitis Congestive Heart Failure ("CHF") -- when a weak heart muscle allows excess fluid to collect inthe lungs Panic attacks, anxiety -- fear can cause rapid breathing ("hyperventilation") Pneumonia -- infection in the lung tissue Exposure to toxic fumes or smoke Pulmonary embolus (blood clot to the lung) Based on your visit today, the exact cause of your shortness of breath is not certain. Your tests do not show any of the serious causes of dyspnea. Sometimes, further testing is needed to find out if a serious problem exists. Therefore, it is important for you to watch for any new symptoms or worsening of your condition and follow up with your doctor as directed. Home Care: When your symptoms are better, resume your usual activities. If you smoke, you need to stop. Join a stop-smoking program or ask your doctor for help. Follow Up with your doctor or as advised by our staff. Get Prompt Medical Attention if any of the following occur: Increasing shortness of breath or wheezing Redness, pain or swelling in one leg Swelling in both legs or ankles Unexpected weight gain Chest, arm, shoulder, neck or upper back pain Dizziness, weakness or fainting Palpitations (the sense that your heart is fluttering, beating fast or hard) Fever of 100.4F (38C) or higher, or as directed by your healthcare provider Cough with dark colored or bloody sputum (mucus) Stress Reaction Anxiety is the feeling we all get when we think something bad might happen. It is a normal response to stress and usually causes only a mild reaction. When anxiety becomes more severe, emotions may interfere with daily life. In some cases, you may not even be aware of what it is youre anxious about! During an anxiety reaction, you may feel like you are helpless, nervous, depressed or irritable. Your body may show signs of anxiety in many ways. You may experience dry mouth, shakiness, dizziness, weakness, trouble breathing, chest pressure, headache, nausea, diarrhea, tiredness, inability to sleep or sexual problems. Home Care: 1) Try to locate the sources of stress in your life. They may not be obvious! These may include: -- Daily hassles of life which pile up (traffic jams, missed appointments, car troubles, etc.) -- Major life changes, both good (new baby, job promotion) and bad (loss of job, loss of loved one) -- Overload: feeling that you have too many responsibilities and can't take care of all of them at once -- Feeling helpless, feeling that your problems are beyond what youre able to solve 2) Notice how your body reacts to stress. Learn to listen to your body signals. This will help you take action before the stress becomes severe. 3) When you can, do something about the source of your stress. (Avoid hassles, limit the amount of change that happens in your life at one time and take a break when you feel overloaded). 4) Unfortunately, many stressful situations cannot be avoided. It is necessary to learn HOW TO MANAGE STRESS better. There are many proven methods that will reduce your anxiety. These include simple things like exercise, good nutrition and adequate rest. Also, there are certain techniques that are helpful: relaxation and breathing exercises, visualization, biofeedback and meditation. For more information about this, consult your doctor or go to a local bookstore and review the many books and tapes available on this subject. Follow Up If you feel that your anxiety is not responding to self-help measures, contact your doctor or make an appointment with a counselor. Get Prompt Medical Attention if any of the following occur: -- Your symptoms get worse -- Chest pain or trouble breathing -- Severe headache not relieved by rest and mild pain reliever -- Rapid or irregular heartbeat, fainting Alprazolam Oral tablet What is this medicine? ALPRAZOLAM (al PRAEd husain ochoa) is a benzodiazepine. It is used to treat anxiety and panic attacks. How should I use this medicine? Take this medicine by mouth with a glass of water. Follow the directions on the prescription label. Take your medicine at regular intervals. Do not take it more often than directed. If you have been taking this medicine regularly for some time, do not suddenly stop taking it. You must gradually reduce the dose or you may get severe side effects. Ask your doctor or health critical care paramedic for advice. Even after you stop taking this medicine it can still affect your body for several days. Talk to your home planning consultant salesperson regarding the use of this medicine in children. Special care may be needed. What side effects may I notice from receiving this medicine? Side effects that you should report to your doctor or health critical care paramedic as soon as possible: allergic reactions like skin rash, itching or hives, swelling of the face, lips, or tongue confusion, forgetfulness depression difficulty sleeping difficulty speaking feeling faint or lightheaded, falls mood changes, excitability or aggressive behavior muscle cramps trouble passing urine or change in the amount of urine unusually weak or tired Side effects that usually do not require medical attention (report to your doctor or health critical care paramedic if they continue or are bothersome): change in sex drive or performance changes in appetite What may interact with this medicine? Do not take this medicine with any of the following medications: certain medicines for HIV infection or AIDS ketoconazole itraconazole This medicine may also interact with the following medications: control pills certain macrolide antibiotics like clarithromycin, erythromycin, troleandomycin cimetidine cyclosporine ergotamine grapefruit juice herbal or dietary supplements like kava kava, melatonin, dehydroepiandrosterone, DHEA, Flower's Wort or valerian imatinib, STI-571 isoniazid levodopa medicines for depression, anxiety, or psychotic disturbances prescription pain medicines rifampin, rifapentine, or rifabutin some medicines for blood pressure or heart problems some medicines for seizures like carbamazepine, oxcarbazepine, phenobarbital, phenytoin, primidone What if I miss a dose? If you miss a dose, take it as soon as you can. If it is almost time for your next dose, take only that dose. Do not take double or extra doses. Where should I keep my medicine? Keep out of the reach of children. This medicine can be abused. Keep your medicine in a safe place to protect it from theft. Do not share this medicine with anyone. Selling or giving away this medicine is dangerous and against the law. Store at room temperature between 20 and 25 degrees C (68 and 77 degrees F). Throw away any unused medicine after the expiration date. What should I tell my health care provider before I take this medicine? They need to know if you have any of these conditions: an alcohol or drug abuse problem bipolar disorder, depression, psychosis or other mental health conditions glaucoma kidney or liver disease lung or breathing disease myasthenia gravis Parkinson's disease porphyria seizures or a history of seizures suicidal thoughts an unusual or allergic reaction to alprazolam, other benzodiazepines, foods, dyes, or preservatives or trying to get breast-feeding What should I watch for while using this medicine? Visit your doctor or health critical care paramedic for regular checks on your progress. Your body can become dependent on this medicine. Ask your doctor or health critical care paramedic if you still need to take it. You may get drowsy or dizzy. Do not drive, use machinery, or do anything that needs mental alertness until you know how this medicine affects you. To reduce the risk of dizzy and fainting spells, do not stand or sit up quickly, especially if you are an older patient. Alcohol may increase dizziness and drowsiness. Avoid alcoholic drinks. Do not treat yourself for coughs, colds or allergies without asking your doctor or health critical care paramedic for advice. Some ingredients can increase possible side effects. You have been given the following additional information: Dyspnea Anxiety Reaction Alprazolam Oral tablet No strenuous activity. (Electronically signed by Bruno Dial MD 08/13/2016 22:03)
--- NOTE | 2016-08-13 22:04 | ED MED RECONCILIATION SUMMARY ---
Patient: TWIN BLAKE Medication Reconciliation Report [facility] VisitID: [id number] [place] [address] 41y, F Registration Date/Time: 08/13/2016 Weight: 136.0 kg Height/Length: 70 in. BMI: 43.0 ALLERGIES: No Known Drug Allergy The patient's Home Medications are listed below: CONTINUE TAKING THE FOLLOWING MEDICATIONS: Albuterol Albuterol Sulfate Inhalation The source(s) of the original Home Medication information: Not obtained. The following Medications were given to the patient in the Emergency Department: Duoneb [Neb Tx] Neb TX 1 unit dose, administered: 08/13/2016 5:13:00 PM Ativan [IVP] IVP 0.5 mg, administered: 08/13/2016 6:52:00 PM The following Medications were prescribed to the patient: Alprazolam 0.5 mg: take 1 orally every 6 hours as needed for anxiety. Dispense ten (10). No refill. -- Bruno Dial MD Pulmicort Flexhaler 180 mcg: inhale 2 puffs every 12 hours. Rinse mouth after inhalation. Dispense one (1) unit. No refills. Substitution is permissible. -- Bruno Dial MD
== END 2016-08-13 20:51 | disposition home or self-care (01) ==
LOC: ED SRH 16:45
DX: R06.00 Dyspnea, unspecified (principal); F41.1 Generalized anxiety disorder; I10 Essential (primary) hypertension; R07.9 Chest pain, unspecified; R05 Cough; I44.7 Left bundle-branch block, unspecified; R06.4 Hyperventilation
CPT/HCPCS: 90100; 90616; 91320; 91556; 91585; 92610; 92720; 95059; 95150

== ENCOUNTER 2016-08-15 09:18 | Outpatient (CLI) | payer OTHER | END 2016-08-15 23:00 | LOC: RT SRH 09:18 | DX: R06.2 Wheezing (principal); R05 Cough ==